=== PATIENT | male | born 1950 | race Two or more races ===

== ENCOUNTER 2024-03-18 04:45 | Inpatient (IN) | payer MEDICARE, OTHER ==
[~2024-03-18] VITALS: Ht 167.6 cm; Wt 82.8 kg
[2024-03-18 05:25] VITALS: PULSE 75; RESP 18; O2SAT 94
--- NOTE | 2024-03-18 05:54 | ED.PDOC ---
History of Present Illness HPI Comments 73-year-old male came to ER via EMS for left wrist pain. Patient had a ground level fall earlier, and fell on his outstretched left hand. Noted deformity on his left wrist. He is intoxicated with alcohol. Upon arrival at [facility], patient was noted to be in AFib in RVR. Patient was given diltiazem and it converted the patient. Blood alcohol levels was 195. Noted close fracture of the left wrist. Splint applied to the left wrist. Due to insurance issues, patient was transferred to the [facility] for continuing management Chief Complaint: Upper extremity Time Seen by MD: 05:54 Reviewed Notes: Nurses Notes Information Source: Patient, Emergency Med Personnel Mode of Arrival: EMS Severity: Moderate Timing: Hours Duration: Since onset Prehospital treatment: None Past Medical History PAST MEDICAL HISTORY: High Lipids, HTN Past Medical History (Other): Prostate enlargement Surgical History: Hernia Repair Surgical History (Other): Prostate surgery Family History Family History: Reviewed,noncontributory to illness Social History Smoker: Non-Smoker Alcohol: Heavy Drugs: Denies Drug Use Lives In: Home Constitutional: denies: chills, diaphoresis, fatigue, fever, malaise, sweats, weakness, others EENTM: denies: blurred vision, double vision, ear bleeding, ear discharge, ear drainage, ear pain, ear ringing, eye pain, eye redness, hearing loss, mouth pain, mouth swelling, nasal discharge, nose bleeding, nose congestion, nose pain, photophobia, tearing, throat pain, throat swelling, voice changes, others Respiratory: denies: cough, hemoptysis, orthopnea, SOB at rest, shortness of breath, SOB with excertion, stridor, wheezing, others Cardiovascular: reports: palpitations; denies: chest pain, dizzy spells, diaphoresis, Dyspnea on exertion, edema, irregular heart beat, left arm pain, lightheadedness, PND, syncope, others Gastrointestinal: denies: abdomen distended, abdominal pain, blood streaked bowels, constipated, diarrhea, dysphagia, difficulty swallowing, hematemesis, melena, nausea, poor appetite, poor fluid intake, rectal bleeding, rectal pain, vomiting, others Genitourinary: denies: burning, dysuria, flank pain, frequency, hematuria, incontinence, penile discharge, penile sore, pain, testicle pain, testicle swelling, urgency, others Neurological: denies: dizziness, fainting, headache, left sided numbness, left sided weakness, numbness, paresthesia, pre-existing deficit, right sided numbness, right sided weakness, seizure, speech problems, tingling, tremors, weakness, others Musculoskeletal: reports: joint pain (Left wrist), joint swelling (Left wrist); denies: back pain, gout, muscle pain, muscle stiffness, neck pain, others Integumetry: denies: bruises, change in color, change in hair/nails, dryness, laceration, lesions, lumps, rash, wounds, others Allergic/Immunocompromised: denies: Difficulty Healing, Frequent Infections, Hives, Itching, others Hematologic/Lymphatic: denies: anemia, blood clots, easy bleeding, easy bruising, swollen glands, others Endocrine: denies: excessive hunger, excessive sweating, excessive thirst, excessive urination, flushing, intolerance to cold, intolerance to heat, unexplained weight gain, unexplained weight loss, others Psychiatric: reports: others (Intoxicated with alcohol); denies: anxiety, bipolar disorder, depression, hopeless, panic disorder, schizophrenia, sleepless, suicidal Physical Exam General Appearance: Mild Distress, Normal HEENT: Normal ENT Inspection, Pharynx Normal, TMs Normal Neck: Full Range of Motion, Non-Tender, Normal, Normal Inspection Respiratory: Chest Non-Tender, Lungs Clear, No Accessory Muscle Use, No Respiratory Distress, Normal Breath Sounds Cardiovascular: Regular Rate/Rhythm, Other (Patient appears to have converted to NSR) Breast Exam: Deferred Gastrointestinal: No Organomegaly, Non Tender, No Pulsatile Mass, Normal Bowel Sounds, Soft Genitalia: Deferred Pelvic: Deferred Rectal: Deferred Extremities: No calf tenderness, Normal capillary refill, No pedal edema, Tender, Other (volar splint on left wrist, NVID) Musculoskeletal : Apperance: Normal 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 Was a procedure done?: No Differential Dx Considerations may include: Alcohol intoxication, AFib in RVR, fracture, closed, left wrist Time of 1ST Reevaluation: 05:49 Reevaluation 1ST: Unchanged Patient Education/Counseling: Diagnosis, Treatment Family Education/Counseling: No Family Present Departure 1 Departure Time of Disposition: 05:56 Impression: Primary Impression: Acute alcohol intoxication Additional Impressions: Left wrist fracture Paroxysmal atrial fibrillation with RVR Disposition: 09 ADMITTED INPATIENT Admit to: Tele Condition: Stable Critical Care Note Critical Care Time?: Yes (35 min-critical care time only) Stability Stability form required: No Heart Score Heart Score: Heart Score Response (Comments) Value History N/A 0 EKG N/A 0 Age N/A 0 Risk Factors N/A 0 Troponin N/A 0 Total 0 I personally scribed for BRITTNEY HARVEY MD ([email or web address]) on 03/18/24 at 05:54. Electronically submitted by Marco Jack ([email or web address]). BRITTNEY HARVEY MD Mar 18, 2024 05:54
[2024-03-18 07:45] VITALS: PULSE 79; RESP 22; O2SAT 97
[2024-03-18 08:33] LABS: Urine Bacteria None Seen /hpf (None Seen)
[2024-03-18] MEDS ORDERED: DOCUSATE SOD 100 MG CAP PO PRN (08:45)
[2024-03-18] MEDS ORDERED: MAALOX PLUS or MAALOX 30 ML PO PRN (08:45)
[2024-03-18] MEDS ORDERED: ACETAMINOPHEN 325 MG TAB PO PRN (08:45)
[2024-03-18] MEDS ORDERED: MORPHINE SULFATE INJ 2 MG/ml SYRG IV PRN (08:45)
[2024-03-18] MEDS ORDERED: TEMAZEPAM 15 MG CAP PO PRN (08:45)
[2024-03-18] MEDS ORDERED: ONDANSETRON HCL 4 MG/2 ML VIAL IV PRN (08:45)
[2024-03-18] MEDS ORDERED: LORazepam 0.5 MG TAB PO PRN (08:45)
[2024-03-18 08:52] LABS: Urine Blood Negative /uL (Negative); Urine Clarity Clear (Clear); Urine Color Light-Yellow (Yellow); Urine Protein, UAD Negative (Negative); Urine Specific Gravity 1.009 (1.001-1.035); Urine Urobilinogen Normal (Negative); Urine WBC <1 /hpf (0 - 3)
--- NOTE | 2024-03-18 08:54 | DVH ---
CLINICAL INDICATION: fracture TECHNIQUE: XY L WRIST 2 VIEW XRAY Comparison: None FINDINGS/IMPRESSION: : Overlying cast obscures bony and soft-tissue detail. Comminuted and displaced fracture of the distal radial metaphysis with intra-articular extension. Subcentimeter ossific density at the dorsal aspect of the wrist seen on lateral view only may represe nt a fracture fragment from the radius versus possible triquetral fracture.
[2024-03-18 09:04] LABS: Basophils # (auto) 0.1 10 ^3/uL (0-0.2); Basophils % (auto) 0.5 % (0.0-2.0); Eosinophils # (auto) 0.1 10 ^3/uL (0-0.8); Eosinophils % (auto) 1.1 % (0.0-7.0); Hematocrit 44.4 % (41.0-53.0); Lymphocytes # (auto) 1.2 10 ^3/uL (0.4-5.4); Lymphocytes % (auto) 10.4 % (10.0-50.0); Mean Corpuscular Hemoglobin 31.3 pg (28.0-32.0); Mean Corpuscular Hgb Conc. 33.7 g/dL (32.0-36.0); Mean Corpuscular Volume 92.8 fL (80.0-100.0); Monocytes # (auto) 0.9 10 ^3/uL (0-1.3); Neutrophils # (auto) 9.5 10 ^3/uL (1.6-8.6); Platelet Count (auto) 206 10^3/uL (140-450); Red Blood Cells 4.79 10^6/uL (4.5-5.90); White Blood Cell 11.9 10^3/uL (4.4-10.8)
[2024-03-18 09:30] LABS: Alanine Aminotransferase 26 U/L (7-40); Albumin 4.2 g/dL (3.2-4.8); Alkaline Phosphatase 107 U/L (46-116); Anion Gap 8 (5-15); Aspartate Aminotransferase 19 U/L (13-40); BUN/Creatinine Ratio 12.4 (10.0-20.0); Blood Alcohol < 3.0 mg/dL (<10); Blood Urea Nitrogen 15 mg/dL (9-23); Calcium 8.3 mg/dL (8.7-10.4); Carbon Dioxide 24 mmol/L (20-31); Chloride 109 mmol/L (98-107); Glucose 106 mg/dL (74-106); Potassium 3.6 mmol/L (3.5-5.1); Sodium 141 mmol/L (136-145)
[2024-03-18 09:31] LABS: Bilirubin, Total 0.5 mg/dL (0.2-1.0)
--- NOTE | 2024-03-18 10:28 | DVHHP2 ---
History of Present Illness Reason for Visit: fall injury History of Present Illness 72 yo with fall injury while intoxicated was transferred here from [facility] for further evaluation patient has some distress was stated to be acutely intoxicated and suffered a mechanical fall that lead to a wrist fracture patient currently no acute distress recommended for admission via the ed team Cardiovascular: HTN ALCOHOL: heavy Review of Systems Constitutional: No: Fever, Chills, Sweats, Weakness, Malaise, Other Eyes: No: Pain, Vision change, Conjunctivae inflammation, Eyelid inflammation, Other, Redness ENT: No: Ear pain, Ear discharge, Nose pain, Nose discharge, Nose congestion, Mouth pain, Mouth swelling, Throat pain, Throat swelling, Other Respiratory: No: Cough, Dry, Shortness of breath, SOB with excertion, Wheezing, Hemoptysis, Pleuritic Pain, Sputum, Wheezing, Other Cardiovascular: No: Chest Pain, Palpitations, Orthopnea, Paroxysmal Noc. Dyspnea, Edema, Lt Headedness, Other Gastrointestinal: No: Nausea, Vomiting, Abdominal Pain, Diarrhea, Constipation, Melena, Hematochezia, Other Genitourinary: No Dysuria, No Frequency, No Incontinence, No Hematuria, No Retention, No Other Musculoskeletal: arm pain; No: other, neck pain, shoulder pain, back pain, hand pain, leg pain, foot pain Skin: No: Rash, Lesions, Jaundice, Bruising, Other Neurological: No: Weakness, Numbness, Incoordination, Change in speech, Confusion, Seizures, Other Medications Current Medications Medications Dose Ordered Sig/Leroy Route Start Time Stop Time Status Last Admin Dose Admin Lorazepam 0.5 mg Q6HP PRN PO 03/18/24 08:45 UNV Al Hydrox/Mg Hydrox/Simethicone 30 ml Q6HP PRN PO 03/18/24 08:45 UNV Docusate Sodium 100 mg BIDPRN PRN PO 03/18/24 08:45 UNV Acetaminophen 650 mg Q6HP PRN PO 03/18/24 08:45 UNV Temazepam 15 mg QHSP PRN PO 03/18/24 08:45 UNV Acetaminophen/ Hydrocodone Bitart 1 tab Q4HP PRN PO 03/18/24 08:45 UNV Ondansetron HCl 4 mg Q4HP PRN IV 03/18/24 08:45 UNV Morphine Sulfate 2 mg Q4HPRN PRN IV 03/18/24 08:45 UNV Exam Vital Signs Vital Signs Date Time Temp Pulse Resp B/P (MAP) Pulse Ox O2 Delivery O2 Flow Rate FiO2 03/18/24 10:04 72 24 156/77 (103) 97 03/18/24 07:45 Room Air* 0 21 03/18/24 07:45 98.2 98.2 General Appearance: Alert, Oriented X3 HEENT: Atraumatic, PERRLA Respiratory: Clear to auscultation, Normal air movement Cardiovascular: Regular rate, Normal S1, Normal S2 Abdominal: Normal bowel sounds, Soft, No tenderness Extremities: No clubbing, No cyanosis, No edema (wrist is splinted limited mobility ) Skin: No rashes, No breakdown Neuro: Normal gait, Normal speech Psych/Mental Status: Mood NL Labs/Xrays Labs Test 03/18/24 08:53 03/18/24 08:32 Range/Units White Blood Count 11.9 H 4.4-10.8 10^3/uL Red Blood Count 4.79 4.5-5.90 10^6/uL Hemoglobin 15.0 13.5-17.5 g/dL Hematocrit 44.4 41.0-53.0 % Mean Corpuscular Volume 92.8 80.0-100.0 fL Mean Corpuscular Hemoglobin 31.3 28.0-32.0 pg Mean Corpuscular Hemoglobin Concent 33.7 32.0-36.0 g/dL Red Cell Distribution Width 12.0 11.8-14.3 % Platelet Count 206 140-450 10^3/uL Mean Platelet Volume 8.4 6.9-10.8 fL Neutrophils (%) (Auto) 80.0 37.0-80.0 % Lymphocytes (%) (Auto) 10.4 10.0-50.0 % Monocytes (%) (Auto) 8.0 0.0-12.0 % Eosinophils (%) (Auto) 1.1 0.0-7.0 % Basophils (%) (Auto) 0.5 0.0-2.0 % Neutrophils # (Auto) 9.5 H 1.6-8.6 10 ^3/uL Lymphocytes # (Auto) 1.2 0.4-5.4 10 ^3/uL Monocytes # (Auto) 0.9 0-1.3 10 ^3/uL Eosinophils # (Auto) 0.1 0-0.8 10 ^3/uL Basophils # (Auto) 0.1 0-0.2 10 ^3/uL Nucleated Red Blood Cells 0.0 % Sodium Level 141 136-145 mmol/L Potassium Level 3.6 3.5-5.1 mmol/L Chloride Level 109 H 98-107 mmol/L Carbon Dioxide Level 24 20-31 mmol/L Anion Gap 8 5-15 Blood Urea Nitrogen 15 9-23 mg/dL Creatinine 1.21 0.700-1.30 mg/dL Glomerular Filtration Rate Calc 64 >90 mL/min BUN/Creatinine Ratio 12.4 10.0-20.0 Serum Glucose 106 74-106 mg/dL Calcium Level 8.3 L 8.7-10.4 mg/dL Total Bilirubin 0.5 0.2-1.0 mg/dL Aspartate Amino Transferase (AST) 19 13-40 U/L Alanine Aminotransferase (ALT) 26 7-40 U/L Alkaline Phosphatase 107 46-116 U/L Total Protein 7.0 5.7-8.2 g/dL Albumin 4.2 3.2-4.8 g/dL Plasma/Serum Blood Alcohol < 3.0 <10 mg/dL Urine Color Light-yellow Yellow Urine Clarity Clear Clear Urine pH 6.0 5.0-9.0 Urine Specific [place] 1.009 1.001-1.035 Urine Protein Negative Negative Urine Ketones Negative Negative Urine Blood Negative Negative /uL Urine Nitrite Negative Negative Urine Bilirubin Negative Negative Urine Urobilinogen Normal Negative mg/dL Urine Leukocyte Esterase Negative Negative /uL Urine RBC 1 0 - 3 /hpf Urine WBC <1 0 - 3 /hpf Urine Squamous Epithelial Cells None seen <5 /hpf Urine Bacteria None seen None Seen /hpf Urine Glucose Normal Normal mg/dL Assessment/Plan Assessment/Plan Admit med/surg Etoh Intoxication currently etoh levels back to normal hemodynamically no acute signs of withdraw noticed will monitor mechanical fall in the setting of intoxication with displaced wrist fracture ortho evaluation for surgical recommendations A-fib RvR stated in the ED patient pulse stable no meds noted for rate control rate has been controlled for hours with no intervention possible secondary to acute intoxication currently no cardiac complaints Plan discussed with: Patient My Orders Orders - MCKAY FREIRE MD Procedure Category Date Status Time L Wrist 2 View Xray XY 11/22/24 Resulted 08:13 * Orthopedic Consult CONS 03/18/24 Transmitted 08:16 Admit ADMIT 03/18/24 Transmitted 08:41 Code Status CODE 03/18/24 Transmitted 08:41 Vital Signs [facility] 03/18/24 In Process 08:41 Review Orders With [facility] 03/18/24 In Process Adm. 08:41 Regular Diet DIET 03/18/24 Transmitted Breakfast Lorazepam Tablet PHA 03/18/24 Logged (Ativan Tablet) 08:45 Alum & Mag PHA 03/18/24 Logged Hydrox-Simethicone 08:45 Docusate Sodium [facility] 03/18/24 Logged Capsule (Colace 08:45 Acetaminophen Tablet PHA 03/18/24 Logged (Tylenol Tablet) 08:45 Temazepam (Restoril) PHA 03/18/24 Logged 08:45 Notify Md Of Changes [facility] 03/18/24 In Process From Base 08:41 Advance Directive [facility] 03/18/24 In Process 08:41 Basic Metabolic Panel LAB 03/19/24 Verified 04:00 Complete Blood Count LAB 03/19/24 Verified 04:00 Patient Condition ORDERS 03/18/24 Transmitted 08:41 Allergies [facility] 03/18/24 In Process 08:41 Hydrocodone-Acet [facility] 03/18/24 Logged 5/325mg Tab (Bonifay 08:45 Ondansetron Hcl [facility] 03/18/24 Logged (Zofran) 08:45 Morphine Sulfate [facility] 03/18/24 Logged Injection 08:45 Notify Md Of Changes [facility] 03/18/24 In Process From Base 08:41 Pharmacy [facility] 03/18/24 In Process Clarification: 09:23 Problem List: (1) Acute alcohol intoxication (2) Left wrist fracture Date of Service: Mar 18, 2024 Billing Provider: MCKAY FREIRE MD Common Visit Codes: [id number] INP/OBS CARE (HIGH) MCKAY FREIRE MD Mar 18, 2024 10:28
[2024-03-18 16:30] VITALS: BP 165/74; PULSE 72; RESP 18; TEMP 99.3; O2SAT 96
[2024-03-18 17:00] VITALS: BP 165/74; PULSE 72; RESP 18; TEMP 99.3; O2SAT 96
[2024-03-18] MEDS ORDERED: NIFE90TA75 PO (17:11)
[2024-03-18] MEDS ORDERED: TAMS1CAP25 PO (17:11)
[2024-03-18] MEDS ORDERED: PANT40TA2 PO (17:11)
[2024-03-18] MEDS ORDERED: TRAM50TA2 PO (17:16)
[2024-03-18] MEDS: HYDROcodone-ACET 5/325MG TAB PO PRN (17:49)
[2024-03-18 21:00] VITALS: BP_SYST 148; BP_SYST 163; BP_SYST 167; BP_DIAS 72; BP_DIAS 81; BP_DIAS 88; PULSE 66; PULSE 80; RESP 18; TEMP 98.9; O2SAT 94; O2SAT 99
[2024-03-18] MEDS: hydrALAZINE HCL 20 MG/ML VL IV PRN (22:30)
[2024-03-19 01:00] VITALS: BP 148/72; PULSE 80; RESP 18; TEMP 98.9; O2SAT 94
[2024-03-19 05:00] VITALS: BP 162/69; PULSE 76; RESP 17; TEMP 98.8; O2SAT 96
[2024-03-19 06:06] LABS: Chloride 107 mmol/L (98-107); Potassium 3.5 mmol/L (3.5-5.1); Sodium 140 mmol/L (136-145)
[2024-03-19 06:07] LABS: Anion Gap 9 (5-15); Calcium 9.1 mg/dL (8.7-10.4); Carbon Dioxide 24 mmol/L (20-31)
[2024-03-19 06:08] LABS: Basophils # (auto) 0 10 ^3/uL (0-0.2); Basophils % (auto) 0.5 % (0.0-2.0); Eosinophils # (auto) 0.3 10 ^3/uL (0-0.8); Eosinophils % (auto) 2.6 % (0.0-7.0); Hematocrit 42.9 % (41.0-53.0); Hemoglobin 14.8 g/dL (13.5-17.5); Lymphocytes % (auto) 19.8 % (10.0-50.0); Mean Corpuscular Hemoglobin 31.9 pg (28.0-32.0); Mean Corpuscular Hgb Conc. 34.4 g/dL (32.0-36.0); Mean Corpuscular Volume 92.6 fL (80.0-100.0); Monocytes # (auto) 1.1 10 ^3/uL (0-1.3); Monocytes % (auto) 10.7 % (0.0-12.0); Neutrophils # (auto) 6.6 10 ^3/uL (1.6-8.6); Neutrophils % (auto) 66.4 % (37.0-80.0); Platelet Count (auto) 233 10^3/uL (140-450); Red Blood Cells 4.63 10^6/uL (4.5-5.90)
[2024-03-19 06:12] LABS: BUN/Creatinine Ratio 13.4 (10.0-20.0); Blood Urea Nitrogen 18 mg/dL (9-23); Glucose 112 mg/dL (74-106)
[2024-03-19 09:00] VITALS: BP 178/72; PULSE 73; RESP 17; TEMP 97.3; O2SAT 98
--- NOTE | 2024-03-19 09:23 | DVHINCON2 ---
Date of service: Mar 19, 2024 Reason for Consultation Left distal radius fracture History of Present Illness The patient fell and hurt his left wrist. He was seen in the emergency room department. Orthopedics was consulted for distal radius fracture. Today, he is doing very well, sitting and eating his meals. Has some discomfort in the left wrist as expected. Past Medical History See hospitalist note Past Surgical History None relevant Family History: Diabetes mellitus G8 MOTHER Prostate carcinoma G8 FATHER Allergies: Coded Allergies: NO KNOWN ALLERGIES (Unverified , 03/18/24) Home Meds Reported Medications Tramadol Hcl (Tramadol Hcl) 50 Mg Tab, 50 MG PO Q8HR PRN for PAIN SCALE 1 THRU 6, MG 03/18/24 Tamsulosin HCl (Tamsulosin Hydrochloride) 0.4 Mg Cap, 0.4 MG PO HS, CAP 03/18/24 Pantoprazole Sodium Sesquihydr (Protonix) 40 Mg Tab, 20 MG PO DAILY, #30 TAB 03/18/24 Nifedipine (Nifedipine Er) 90 Mg Tab, 1 TAB PO DAILY, #30 TAB 5 Refills 03/18/24 Current Medications Current Medications Medications (Trade) Dose Ordered Sig/Leroy Route PRN Reason Start Time Stop Time Status Last Admin Hydralazine HCl (Apresoline Injection) 10 mg Q6HP PRN IV SBP>150 03/18/24 22:15 03/19/24 06:16 Vital Signs Vital Signs Date Time Temp Pulse Resp B/P (MAP) Pulse Ox O2 Delivery O2 Flow Rate FiO2 03/19/24 06:16 162/69 03/19/24 05:00 98.8 76 17 96 98.8 03/18/24 16:20 Room Air* 0 21 Physical Exam On exam: AAA x3. Trachea midline, nonlabored breathing, moist mucous membranes, capillary refill less than 2 seconds Left wrist is wrapped in a splint. He can wiggle his fingers. No significant swelling. No stretch pain. Sensation is intact to light touch. Labs/Diagnostic Data Labs Test 03/19/24 05:27 03/18/24 08:53 03/18/24 08:52 03/18/24 08:32 Range/Units White Blood Count 10.0 4.4-10.8 10^3/uL Red Blood Count 4.63 4.5-5.90 10^6/uL Hemoglobin 14.8 13.5-17.5 g/dL Hematocrit 42.9 41.0-53.0 % Mean Corpuscular Volume 92.6 80.0-100.0 fL Mean Corpuscular Hemoglobin 31.9 28.0-32.0 pg Mean Corpuscular Hemoglobin Concent 34.4 32.0-36.0 g/dL Red Cell Distribution Width 12.0 11.8-14.3 % Platelet Count 233 140-450 10^3/uL Mean Platelet Volume 8.6 6.9-10.8 fL Neutrophils (%) (Auto) 66.4 37.0-80.0 % Lymphocytes (%) (Auto) 19.8 10.0-50.0 % Monocytes (%) (Auto) 10.7 0.0-12.0 % Eosinophils (%) (Auto) 2.6 0.0-7.0 % Basophils (%) (Auto) 0.5 0.0-2.0 % Neutrophils # (Auto) 6.6 1.6-8.6 10 ^3/uL Lymphocytes # (Auto) 2.0 0.4-5.4 10 ^3/uL Monocytes # (Auto) 1.1 0-1.3 10 ^3/uL Eosinophils # (Auto) 0.3 0-0.8 10 ^3/uL Basophils # (Auto) 0 0-0.2 10 ^3/uL Nucleated Red Blood Cells 0.0 % Sodium Level 140 136-145 mmol/L Potassium Level 3.5 3.5-5.1 mmol/L Chloride Level 107 98-107 mmol/L Carbon Dioxide Level 24 20-31 mmol/L Anion Gap 9 5-15 Blood Urea Nitrogen 18 9-23 mg/dL Creatinine 1.34 H 0.700-1.30 mg/dL Glomerular Filtration Rate Calc 57 >90 mL/min BUN/Creatinine Ratio 13.4 10.0-20.0 Serum Glucose 112 H 74-106 mg/dL Calcium Level 9.1 8.7-10.4 mg/dL Total Bilirubin 0.5 0.2-1.0 mg/dL Aspartate Amino Transferase (AST) 19 13-40 U/L Alanine Aminotransferase (ALT) 26 7-40 U/L Alkaline Phosphatase 107 46-116 U/L Total Protein 7.0 5.7-8.2 g/dL Albumin 4.2 3.2-4.8 g/dL Plasma/Serum Blood Alcohol < 3.0 <10 mg/dL Urine Color Light-yellow Yellow Urine Clarity Clear Clear Urine pH 6.0 5.0-9.0 Urine Specific [place] 1.009 1.001-1.035 Urine Protein Negative Negative Urine Ketones Negative Negative Urine Blood Negative Negative /uL Urine Nitrite Negative Negative Urine Bilirubin Negative Negative Urine Urobilinogen Normal Negative mg/dL Urine Leukocyte Esterase Negative Negative /uL Urine RBC 1 0 - 3 /hpf Urine WBC <1 0 - 3 /hpf Urine Squamous Epithelial Cells None seen <5 /hpf Urine Bacteria None seen None Seen /hpf Urine Glucose Normal Normal mg/dL Assessment X-rays: Comminuted distal radius fracture, well aligned Plan/Recommendation Plan: 1. He is in a sugar-tong splint, well aligned distal radius fracture that was reduced in the ER. 2. Strict limb elevation for 48 hours 3. Follow up in Orthopedic Clinic in 3-7 days 4. I discussed with the patient surgical versus nonsurgical options. Given the excellent alignment postreduction, we may put him in a cast with volar and ulnar deviation. We will repeat x-rays to see if the reduction is maintained. If it displaces, open reduction internal fixation may be considered. Plan discussed with: Patient ALEXA FRANCO MD Mar 19, 2024 09:23
[2024-03-19] MEDS ORDERED: ERGO1CAP23 PO (12:01)
--- NOTE | 2024-03-19 12:03 | DVHDS2 ---
Discharge Summary Date of Admission Mar 18, 2024 at 08:41 Date of Discharge: Mar 19, 2024 Admitting Diagnosis mechanical fall in the setting of intoxication with displaced wrist fracture Labs/Diagnostic Data: Laboratory Results Test 03/19/24 05:27 03/18/24 08:53 03/18/24 08:52 03/18/24 08:32 White Blood Count 10.0 10^3/uL (4.4-10.8) Red Blood Count 4.63 10^6/uL (4.5-5.90) Hemoglobin 14.8 g/dL (13.5-17.5) Hematocrit 42.9 % (41.0-53.0) Mean Corpuscular Volume 92.6 fL (80.0-100.0) Mean Corpuscular Hemoglobin 31.9 pg (28.0-32.0) Mean Corpuscular Hemoglobin Concent 34.4 g/dL (32.0-36.0) Red Cell Distribution Width 12.0 % (11.8-14.3) Platelet Count 233 10^3/uL (140-450) Mean Platelet Volume 8.6 fL (6.9-10.8) Neutrophils (%) (Auto) 66.4 % (37.0-80.0) Lymphocytes (%) (Auto) 19.8 % (10.0-50.0) Monocytes (%) (Auto) 10.7 % (0.0-12.0) Eosinophils (%) (Auto) 2.6 % (0.0-7.0) Basophils (%) (Auto) 0.5 % (0.0-2.0) Neutrophils # (Auto) 6.6 10 ^3/uL (1.6-8.6) Lymphocytes # (Auto) 2.0 10 ^3/uL (0.4-5.4) Monocytes # (Auto) 1.1 10 ^3/uL (0-1.3) Eosinophils # (Auto) 0.3 10 ^3/uL (0-0.8) Basophils # (Auto) 0 10 ^3/uL (0-0.2) Nucleated Red Blood Cells 0.0 % Sodium Level 140 mmol/L (136-145) Potassium Level 3.5 mmol/L (3.5-5.1) Chloride Level 107 mmol/L (98-107) Carbon Dioxide Level 24 mmol/L (20-31) Anion Gap 9 (5-15) Blood Urea Nitrogen 18 mg/dL (9-23) Creatinine 1.34 mg/dL (0.700-1.30) Glomerular Filtration Rate Calc 57 mL/min (>90) BUN/Creatinine Ratio 13.4 (10.0-20.0) Serum Glucose 112 mg/dL (74-106) Calcium Level 9.1 mg/dL (8.7-10.4) Total Bilirubin 0.5 mg/dL (0.2-1.0) Aspartate Amino Transferase (AST) 19 U/L (13-40) Alanine Aminotransferase (ALT) 26 U/L (7-40) Alkaline Phosphatase 107 U/L (46-116) Total Protein 7.0 g/dL (5.7-8.2) Albumin 4.2 g/dL (3.2-4.8) Plasma/Serum Blood Alcohol < 3.0 mg/dL (<10) Urine Color Light-yellow (Yellow) Urine Clarity Clear (Clear) Urine pH 6.0 (5.0-9.0) Urine Specific [place] 1.009 (1.001-1.035) Urine Protein Negative (Negative) Urine Ketones Negative (Negative) Urine Blood Negative /uL (Negative) Urine Nitrite Negative (Negative) Urine Bilirubin Negative (Negative) Urine Urobilinogen Normal mg/dL (Negative) Urine Leukocyte Esterase Negative /uL (Negative) Urine RBC 1 /hpf (0 - 3) Urine WBC <1 /hpf (0 - 3) Urine Squamous Epithelial Cells None seen /hpf (<5) Urine Bacteria None seen /hpf (None Seen) Urine Glucose Normal mg/dL (Normal) Other Laboratory Tests 03/19/24 05:27 Brief Hx & Hospital Course: The patient fell and hurt his left wrist. He was seen in the emergency room department. Orthopedics was consulted for distal radius fracture. Patient is in a cast, family at bedside. I counseled the patient on alcohol cessation. Patient needs to keep limb elevated, and tylenol for pain. I will avoid giving the patient narcotics due to alcohol use and elderly age. Patient is comfortable with Tylenol PRN, iff pain is not controlled, patient can see his PCP for pain medications. Condition at Discharge: Stable Final Diagnosis/Problems List mechanical fall in the setting of intoxication with displaced wrist fracture Discharge Disposition: Home Discharge Instruct/Medications Diet: Cardiac 2g Na,low cholest Activity: Light activity Follow Up/Referral: PCP in 3-5 days Ortho Clinic in 2-3 weeks Medications: see [facility] Discharge Statement: "Patient was advised to return to the ER or call 911 if any headaches, dizziness, shortness of breath, chest pain, abdominal pain, bleeding, fevers, or worsening of medical condition. Patient was counseled about treatment plan, medications, possible side effects, patientverbalized understanding. All questions were answered to the best of my ability. This discharge took greater then 30 minutes in planning, reviewing documentation, counseling the patient, and discussing with other team members." ASSESSMENT ASSESSMENT Assessment Date of Service: Mar 19, 2024 Billing Provider: MILA VALVERDE MD Common Visit Codes: [id number] DISCH DAY >30min MILA VALVERDE MD Mar 19, 2024 12:03
[2024-03-19] MEDS: cloNIDine HCL 0.1 MG TAB PO ONE (12:30)
[2024-03-19 13:00] VITALS: BP 174/83; PULSE 64; RESP 20; TEMP 97.7; O2SAT 96
[2024-03-21 10:29] LABS: Hepatitis B Surface Antigen Negative (Negative)
[2024-03-21 10:50] LABS: Hepatitis A Ab IgM Negative
[2024-03-21 10:51] LABS: Hepatitis B Core IgM Negative; Hepatitis C Antibody Negative (Negative)
== END 2024-03-19 15:45 | disposition home or self-care (01) | DRG 563 ==
LOC: ER 04:45 → EDBD 05:25 → OVERFLOW 08:41 → WEST WING 17:19
PROVIDERS: ADMIT Hospitalist; ATTEND Hospitalist
DX: S52.592A Other fractures of lower end of left radius, initial encounter for closed fracture (principal); F10.129 Alcohol abuse with intoxication, unspecified; I10 Essential (primary) hypertension; N40.0 Benign prostatic hyperplasia without lower urinary tract symptoms; I48.0 Paroxysmal atrial fibrillation; Z80.42 Family history of malignant neoplasm of prostate; Z79.899 Other long term (current) drug therapy; Z83.3 Family history of diabetes mellitus; W18.39XA Other fall on same level, initial encounter; Y93.89 Activity, other specified; Y92.89 Other specified places as the place of occurrence of the external cause; Y99.8 Other external cause status; Y90.6 Blood alcohol level of 120-199 mg/100 ml
CPT/HCPCS: 36415; 73100; 80048; 80053; 80074; 80320; 81001; 85025; G0378